=== PATIENT | male | born 1950 | race Caucasian/White ===

== ENCOUNTER → 2016-12-02 | Outpatient (CLI) | payer OTHER ==
--- NOTE | 2016-12-02 16:04 | US ---
Scrotal Ultrasound History: Palpable left scrotal lump for approximately 1-1/2 weeks. History of left orchiopexy. Comparison: None available. Findings: Right: The right testicle has homogeneous echotexture, with no discrete masses, measuring 2.5 x 3.3 x 4.7 cm. Normal arterial blood flow is present in the testicle. The right epididymis has normal ec hotexture. There is a small hydrocele, with no varicocele. Left: The left testicle has homogeneous echotexture, with no discrete masses, measuring 3.6 x 2.5 x 4.5 cm. Normal arterial blood flow is present in the testicle. There is a septated 2.4 x 2.3 x 2.8 cm left epididymal head cyst. There is minimal nodularity at the margins of the cyst. No vasculariz ed soft tissue elements are visible on Doppler. There is no hydrocele or varicocele. Blood flow is symmetric, with no evidence of hyperemia. Impression: 1. Complex 2.8 cm left epididymal cyst, measuring 2.8 cm. Cystic extratesticular lesions are most l ikely benign, however, consider Urology consultation or ultrasound follow up. 2. Small right hydrocele.
== END ==
LOC: FIMAGING 11:30
PROVIDERS: ATTEND Family Medicine
DX: N50.3 Cyst of epididymis (principal); N43.3 Hydrocele, unspecified

== ENCOUNTER 2017-03-09 11:48 | Emergency (ER) | payer OTHER ==
[2017-03-09 11:52] VITALS: BP 155/92; PULSE 67; RESP 16; TEMP 98.2; O2SAT 91
--- NOTE | 2017-03-09 12:33 | EDPHY ---
H & P Time Seen by Provider: 03/09/17 12:20 HPI/ROS: HPI: 66 year old male presents to emergency department with chief concern left hand laceration. Occurred 30 minutes prior to arrival when he was playing with his dog in the grass, and hit his hand on a piece of glass. It was a small intact piece of glass that he removed. Area bled profusely, he rinsed with water, and presents for evaluation. Up-to-date with tetanus. Denies weakness, numbness, tingling, or decreased range of motion of the hand. He is not on any home medications. Immunocompetent. Right-hand dominant. ROS:10 point review of systems is negative other than as stated in HPI Smoking Status: Former smoker Physical Exam: Vital signs stable, reviewed by me General: Awake, alert, calm, cooperative. No acute distress. Head: Normalocephalic. Atraumatic. EENT: PERRLA. EOMI. CV: Radial pulses 2+ bilaterally. Brisk cap refill all extremities. Neuro: Alert. Oriented x 3. Speech clear. Sensation intact all extremities. Skin: Skin warm, dry. There is a 1.5 cm laceration located dorsum of the left hand, mid 1st metacarpal. Musculoskeletal: Full range of motion left hand. Opposition intact. Strength 5 + all digits left hand. Constitutional: Initial Vital Signs Temperature (C) 36.8 C 03/09/17 11:49 Heart Rate 67 03/09/17 11:49 Respiratory Rate 16 03/09/17 11:49 Blood Pressure 155/92 H 03/09/17 11:49 O2 Sat (%) 91 L 03/09/17 11:49 O2 Delivery Mode Room Air Allergies/Adverse Reactions: No Known Allergies Allergy (Unverified 03/09/17 11:52) Home Medications: Medication Instructions Recorded NO HOME MEDS 10/02/10 Medical Decision Making Procedures: After verbal consent was obtained and risks and benefits explained, the laceration was anesthetized using a total of 3 mL of 0.5% Marcaine. Lac then irrigated per protocol by technical project manager. Under sterile procedure, the wound was explored to its base with a gloved finger and no foreign body was identified. No deep structure identified. Wound was then draped and sterile procedure followed during laceration repair. Wound was repaired using # 2, 5-0 Prolene sutures. After repair, laceration cleansed, bacitracin and sterile dressing applied. Procedure performed by myself. Procedure was simple. Pt tolerated the procedure well. ED Course/Re-evaluation: 66-year-old male presents to ED with laceration of the left hand. Has had tetanus within the last 10 years. I suggested a x-ray to rule out glass foreign body and patient refused. Differential Diagnosis: Laceration, retained foreign body, ligament or tendon injury Departure - Departure Disposition: Home, Routine, Self-Care Clinical Impression: Hand laceration Qualifiers: Encounter type: initial encounter Foreign body presence: unspecified Laterality : left Qualified Code(s): S61.412A - Laceration without foreign body of left hand, initial encounter Condition: Good Instructions: Laceration (ED) Additional Instructions: Plan: We saw you here today at the ED with a laceration of your left hand. We closed the wound with 2 sutures. We'll have you leave the dressing on for 24 hours then remove it and begin cleaning the area daily by letting warm, soapy water run over it, but do not scrub or rub the site. Remove dried blood with a Q-tip dipped in water. Apply a thin layer of antibiotic ointment. Continue this routine daily. Recheck urgently if the area develops redness, swelling, increased pain, or red streaking above the wound, or if you develop a fever. Return to the emergency department in 10 days for suture removal. Return prior to then if any issues or concerns. Referrals: Jeannette Schroeder MD [Primary Care Provider] - As per Instructions
== END 2017-03-09 13:22 | disposition home or self-care (01) ==
PROC: 0HQGXZZ Repair Left Hand Skin, External Approach (ICD-10-PCS; principal; 2017-03-09)
DX: S61.412A Laceration without foreign body of left hand, initial encounter (principal); Z87.891 Personal history of nicotine dependence; W25.XXXA Contact with sharp glass, initial encounter

== ENCOUNTER → 2017-04-28 | Outpatient (CLI) | payer OTHER | LOC: FCPNEURO 20:00 | PROVIDERS: ATTEND Psychiatry & Neurology Sleep Medicine | DX: G47.33 Obstructive sleep apnea (adult) (pediatric) (principal); G47.31 Primary central sleep apnea ==

== ENCOUNTER 2017-05-17 08:50 | Emergency (ER) | payer OTHER ==
[2017-05-17 08:55] VITALS: BP 148/86; PULSE 60; RESP 16; TEMP 97.9; O2SAT 97
--- NOTE | 2017-05-17 09:03 | EDPHY ---
H & P Smoking Status: Former smoker Time Seen by Provider: 05/17/17 08:56 HPI/ROS: CHIEF COMPLAINT: right foot and ankle pain x3 days HISTORY OF PRESENT ILLNESS: 66-year-old male states that 3 days ago he was hiking, rolled his foot and felt something pop in location was lateral ankle and 5th metatarsal region. He has been able to bear weight albeit with pain. He has noted soft tissue swelling. No discoloration. No paresthesia. No fall from height. No knee or fibular head pain. PRIMARY CARE PROVIDER: Dr. Jeannette Schroeder REVIEW OF SYSTEMS: A ten point review of systems was performed and is negative with the exception of the items mentioned in the HPI PHYSICAL EXAM (Prior to examination, patient consented to physical exam, hands were washed and my usual and customary physical exam procedures followed) 1) GENERAL: Well-developed, well-nourished, alert and oriented. Appears to be in no acute distress. 2) HEAD: Normocephalic 3) HEENT: Skull are anicteric 4) LUNGS: Breathing comfortably. 5) MUSCULOSKELETAL: Soft tissue swelling present to the lateral malleolus with associated tenderness. Soft tissue swelling present to the 5th metatarsal with associated tenderness. Intact skin. proximal tibia and fibula nontender . negative Parker test, compartments soft 6) SKIN: Intact no discoloration 7) VASCULAR: DP,PT pulses and cap refill present and brisk DIFFERENTIAL DIAGNOSIS: in no particular order including but not limited to fracture, sprain, compartment syndrome Procedure: Splint A [place] boot splint was applied by ER non morse intercept technician. After application of the splint I returned and re-examined the patient. The splint was adequately immobilizing the joint and distal to the splint the patient's circulation and sensation were intact. Patient shows no signs of compartment syndrome. Was given orthopedic precautions. (Debby Bolton) Constitutional: Initial Vital Signs Temperature (C) 36.6 C 05/17/17 08:52 Heart Rate 60 05/17/17 08:52 Respiratory Rate 16 05/17/17 08:52 Blood Pressure 148/86 H 05/17/17 08:52 O2 Sat (%) 97 05/17/17 08:52 O2 Delivery Mode Room Air Allergies/Adverse Reactions: No Known Allergies Allergy (Verified 05/17/17 08:51) Home Medications: Medication Instructions Recorded NO HOME MEDS 10/02/10 MDM/Departure - MDM Imaging Results: Images reviewed by myself (Debby Bolton) ED Course/Re-evaluation: This patient was evaluated and managed by the PA. I agree with the plan of care. I am the secondary supervising physician. (Soledad Heaton) - Depart Disposition: Home, Routine, Self-Care Clinical Impression: Closed fracture of right distal fibula Condition: Good Instructions: Ankle Fracture (ED) Additional Instructions: Return to the ER immediately if you experience discoloration, have worsening pain, numbness, tingling, or any other symptoms that concern you. If you received x-rays in the emergency department today, be advised, that ligamentous , tendon, muscular, and other non-bony injury cannot be fully ruled out. Try to keep your affected extremity elevated above the level of your chest, and keep cold packs on the affected area, for the next 48 hours. Referrals: Gonzales Negro MD [Medical Doctor] - 2-3 days without fail
== END 2017-05-17 10:00 | disposition home or self-care (01) ==
DX: S82.831A Other fracture of upper and lower end of right fibula, initial encounter for closed fracture (principal); Z87.891 Personal history of nicotine dependence; X58.XXXA Exposure to other specified factors, initial encounter; Y93.01 Activity, walking, marching and hiking
CPT/HCPCS: 73610; 73630; 99283; L4386

== ENCOUNTER → 2017-10-21 | Outpatient (CLI) | payer OTHER ==
--- NOTE | 2017-10-29 13:22 | CPEEG ---
[f rep st] ELECTROENCEPHALOGRAM DATE OF STUDY: 10/21/2017 DATE OF INTERPRETATION: 10/29/2017. INTERPRETATION: This EEG is abnormal due to the presence of generalized atypical spike and wave disc harges. 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 The patient did not have any clinical events during the recording. These findings have been transmitted to the referrin g physician for this procedure, Dr. Mahesh Soni. REPORT: This EEG contains 10-11 Hz alpha activity to the posterior head regions. The primary featur e of this recording was the presence of generalized atypical spike and wave discharges occurring at r est. There was increased of generalized atypical spike and wave discharges during drowsiness and sle ep. The patient did not have any clinical events or electrographic discharges during the recording. There was no additional activation with photic stimulation or hyperventilation. The findings of thi s EEG were transmitted to Dr. Mahesh Soni, the referring physician. /[id number]/MODL
== END ==
LOC: FCPNEURO 14:28
PROVIDERS: ATTEND Psychiatry & Neurology Neurology
DX: R56.9 Unspecified convulsions (principal)

== ENCOUNTER → 2017-11-25 | Outpatient (CLI) | payer OTHER ==
[~2017-11-25] MED LIST: GADOBUTROL 10 ML VIAL IVP ONE
== END ==
LOC: FIMAGING 15:33
PROVIDERS: ATTEND Otolaryngology Facial Plastic Surgery
DX: R93.0 Abnormal findings on diagnostic imaging of skull and head, not elsewhere classified (principal); H90.5 Unspecified sensorineural hearing loss
CPT/HCPCS: 70553; A9585

== ENCOUNTER → 2018-11-29 | Outpatient (CLI) | payer OTHER | LOC: FIMAGING 09:51 | PROVIDERS: ATTEND Family Medicine Sports Medicine | DX: M50.31 Other cervical disc degeneration, high cervical region (principal) ==

== ENCOUNTER 2019-01-19 00:35 | Emergency (ER) | payer OTHER ==
--- NOTE | 2019-01-19 00:43 | EDPHY ---
H & P Stated Complaint: Nausea x 1 day Time Seen by Provider: 01/19/19 00:43 HPI/ROS: HPI CHIEF COMPLAINT: Nausea vomiting. "I ate a bad egg" HISTORY OF PRESENT ILLNESS: This is a 68-year-old male, he has a history of Meniere's disease, otherwise healthy, presents emergency room stating he has had nausea vomiting throughout the day. He states that he woke up this morning and felt rather fine, he went and ate an egg and Sausage for breakfast at a restaurant, this around 8:00 a.m. Around 10:00 a.m. He got to work felt nauseous vomited multiple times. Vomiting continue approximately 5-6 times at home. No blood. States had multiple bowel movements and but no mesfin diarrhea. He states he had 10 and soft bowel movements. He still feels nauseous. Denies any chest pain, denies shortness of breath, denies abdominal pain. His main complaint is nausea. No dizziness no headache. No fever. Did have chills.. He did not get his flu shot this year. Past Medical History: Denies significant medical history except for Meniere's disease Past Surgical History: No recent surgery Social History: Denies daily use of drugs alcohol tobacco. Family History: Noncontributory ROS REVIEW OF SYSTEMS: 10 Systems were reviewed and negative with the exception of the elements mentioned in the history of present illness. Exam Constitutional appears well nontoxic no acute distress triage nursing summary reviewed, vital signs reviewed, awake/alert. Eyes normal conjunctivae and sclera, EOMI, PERRLA. HENT normal inspection, atraumatic, moist mucus membranes, no epistaxis, neck supple/ no meningismus, no raccoon eyes. Respiratory clear to auscultation bilaterally, normal breath sounds, no respiratory distress, no wheezing. Cardiovascular rate normal, regular rhythm, no murmur, no edema, distal pulses normal. Gastrointestinal soft, non-tender, no rebound, no guarding, normal bowel sounds, no distension, no pulsatile mass. Genitourinary no CVA tenderness. Musculoskeletal no midline vertebral tenderness, full range of motion, no calf swelling, no tenderness of extremities, no meningismus, good pulses, neurovascularly intact. Skin pink, warm, & dry, no rash, skin atraumatic. Neurologic awake, alert and oriented x 3, AAOx3, moves all 4 extremities equally, motor intact, sensory intact, CN II-XII intact, normal cerebellar, normal vision, normal speech. Psychiatric normal mood/affect. Heme/Lymph/Immune no lymphadenopathy. Differential Diagnosis: Differential diagnosis includes but is not limited to and in no particular order: Bowel obstruction, appendicitis, gallbladder disease, diverticulitis, colitis, enteritis, perforated viscus, gastritis, GERD , esophagitis, urinary tract infection, pyelonephritis, kidney stones Medical Decision Making: Plan for this patient IV establishment IV fluid bolus , IV Zofran 4 mg for nausea, basic labs, EKG, troponin, chest x-ray, influenza and re-evaluate. Re-evaluation: EKG interpretation by me on record in IDx system. Impression time of EKG 0056, sinus rhythm rate of 67, no signs of acute ischemia no appreciate ST elevation or significant ST depression. Chest x-ray negative for acute cardiopulmonary disease. Image interpreted by myself. 0503: Patient re-evaluate he is resting comfortably has not had any vomiting here. Requesting discharge. Plan for repeat troponin repeat EKG is not had any chest pain or shortness of breath. P.o. Challenge well. 5:06 a.m. patient is eager for discharge requesting be discharged he states he has to get to his work job site today. Denies any chest pain or shortness of breath. He ambulated well throughout the emergency without difficulty also PO challenge well without any vomiting. He states he feels much better after 2 L of fluid and Zofran. He is requesting Zofran for home. His troponin was negative. Chest x-ray did not show anything acute Is abdomen is soft nontender. It is possibly a food-borne related illness for causing vomiting I do recommend that he develops worsening abdominal pain, fever, vomiting he needs to return to the emergency Room. He is comfortable this plan. I do recommend bland diet EKG interpretation by me on record in IDx system. Impression time of EKG 5:10 a.m. This is a repeat EKG, sinus rhythm rate of 68, this EKG was performed due to nausea vomiting. He did not have any chest pain or shortness of breath. This EKG is unremarkable for acute ischemia. 2nd troponin 0.00 Patient drinking without difficulty and eager for discharge. We discussed return precautions return emergency room if develops worsening symptoms. Source: Patient - Personal History Current Tetanus Diphtheria and Acellular Pertussis (TDAP): Unsure Tetanus Vaccine Date: < 10 YEARS - Medical/Surgical History Hx Asthma: No Hx Chronic Respiratory Disease: No Hx Diabetes: No Hx Cardiac Disease: No Hx Renal Disease: No Hx Cirrhosis: No Hx Alcoholism: No Hx HIV/AIDS: No Hx Splenectomy or Spleen Trauma: No Other PMH: Meniere's disease - Social History Smoking Status: Former smoker Constitutional: Initial Vital Signs Temperature (C) 37.6 C 01/19/19 00:39 Heart Rate 76 01/19/19 00:39 Respiratory Rate 16 01/19/19 00:39 Blood Pressure 153/81 H 01/19/19 00:39 O2 Sat (%) 97 01/19/19 00:39 O2 Delivery Mode Room Air O2 (L/minute) 2 Allergies/Adverse Reactions: No Known Allergies Allergy (Verified 05/17/17 08:51) Home Medications: Medication Instructions Recorded NO HOME MEDS 10/02/10 Ondansetron HCl [Zofran] 4 mg PO Q4-6PRN PRN #10 tablet 01/19/19 Medical Decision Making - Data Points Laboratory Results: Laboratory Results 01/19/19 00:49 01/19/19 00:49 01/19/19 01/19/19 01/19/19 05:09 01:00 00:54 WBC RBC Hgb Hct MCV MCH MCHC RDW Plt Count MPV Neut % (Auto) Lymph % (Auto) [place] % (Auto) Eos % (Auto) Baso % (Auto) Nucleat RBC Rel Count Absolute Neuts (auto) Absolute Lymphs (auto) Absolute Monos (auto) Absolute Eos (auto) Absolute Basos (auto) Absolute Nucleated RBC Immature Gran % Immature Gran # RBC/WBC/PLT Morphology Platelet Estimate Sodium Potassium Chloride Carbon Dioxide Anion Gap BUN Creatinine Estimated GFR Glucose Calcium Magnesium Total Bilirubin Conjugated Bilirubin Unconjugated Bilirubin AST ALT Alkaline Phosphatase POC Troponin I Pending 0.00 ng/mL ng/mL (0.00-0.08) NT-Pro-B Natriuret Pep Total Protein Albumin Lipase Nasal Influenza A PCR NEGATIVE FOR FLU A (NEGATIVE) Nasal Influenza B PCR NEGATIVE FOR FLU B (NEGATIVE) 01/19/19 01/19/19 00:49 00:49 WBC 8.84 10^3/uL 10^3/uL (3.80-9.50) RBC 5.31 10^6/uL 10^6/uL (4.40-6.38) Hgb 15.5 g/dL g/dL (13.7-17.5) Hct 44.4 % % (40.0-51.0) MCV 83.6 fL fL (81.5-99.8) MCH 29.2 pg pg (27.9-34.1) MCHC 34.9 g/dL g/dL (32.4-36.7) RDW 13.0 % % (11.5-15.2) Plt Count 298 10^3/uL 10^3/uL (150-400) MPV 10.9 fL fL (8.7-11.7) Neut % (Auto) 85.8 % H % (39.3-74.2) Lymph % (Auto) 4.8 % L % (15.0-45.0) [place] % (Auto) 6.8 % % (4.5-13.0) Eos % (Auto) 2.0 % % (0.6-7.6) Baso % (Auto) 0.3 % % (0.3-1.7) Nucleat RBC Rel Count 0.0 % % (0.0-0.2) Absolute Neuts (auto) 7.58 10^3/uL H 10^3/uL (1.70-6.50) Absolute Lymphs (auto) 0.42 10^3/uL L 10^3/uL (1.00-3.00) Absolute Monos (auto) 0.60 10^3/uL 10^3/uL (0.30-0.80) Absolute Eos (auto) 0.18 10^3/uL 10^3/uL (0.03-0.40) Absolute Basos (auto) 0.03 10^3/uL 10^3/uL (0.02-0.10) Absolute Nucleated RBC 0.00 10^3/uL 10^3/uL (0-0.01) Immature Gran % 0.3 % % (0.0-1.1) Immature Gran # 0.03 10^3/uL 10^3/uL (0.00-0.10) RBC/WBC/PLT Morphology TNP Platelet Estimate TNP Sodium 138 mEq/L mEq/L (135-145) Potassium 4.3 mEq/L mEq/L (3.5-5.2) Chloride 105 mEq/L mEq/L (97-110) Carbon Dioxide 20 mEq/l L mEq/l (22-31) Anion Gap 13 mEq/L mEq/L (6-14) BUN 19 mg/dL mg/dL (7-23) Creatinine 0.9 mg/dL mg/dL (0.7-1.3) Estimated GFR > 60 Glucose 113 mg/dL H mg/dL (70-100) Calcium 9.3 mg/dL mg/dL (8.5-10.4) Magnesium 1.8 mg/dL mg/dL (1.6-2.3) Total Bilirubin 1.3 mg/dL mg/dL (0.1-1.4) Conjugated Bilirubin 0.4 mg/dL mg/dL (0.0-0.5) Unconjugated Bilirubin 0.9 mg/dL mg/dL (0.0-1.1) AST 37 IU/L IU/L (17-59) ALT 31 IU/L IU/L (21-72) Alkaline Phosphatase 87 IU/L IU/L (38-126) POC Troponin I NT-Pro-B Natriuret Pep 152 pg/mL H pg/mL (0-125) Total Protein 7.3 g/dL g/dL (6.3-8.2) Albumin 4.5 g/dL g/dL (3.5-5.0) Lipase 149 IU/L IU/L (23-300) Nasal Influenza A PCR Nasal Influenza B PCR Medications Given: Discontinued Medications Famotidine (Pepcid) 20 mg IVP EDNOW ONE Stop: 01/19/19 00:51 Last Admin: 01/19/19 02:27 Dose: Not Given Sodium Chloride (Ns) 1,000 mls @ 0 mls/hr IV EDNOW ONE; Wide Open PRN Reason: Protocol Stop: 01/19/19 00:50 Last Admin: 01/19/19 02:28 Dose: Not Given Sodium Chloride (Ns) 1,000 mls @ 0 mls/hr IV EDNOW ONE; Wide Open PRN Reason: Protocol Stop: 01/19/19 02:09 Last Admin: 01/19/19 02:27 Dose: Not Given Ondansetron HCl (Zofran) 4 mg IVP EDNOW ONE Stop: 01/19/19 00:51 Last Admin: 01/19/19 02:28 Dose: Not Given Point of Care Test Results: Chemistry 01/19/19 00:54 POC Troponin I 0.00 ng/mL ng/mL (0.00-0.08) Departure - Departure Disposition: Home, Routine, Self-Care Clinical Impression: Nausea and vomiting Condition: Good Instructions: Ondansetron (By mouth), Acute Nausea and Vomiting (ED) Additional Instructions: 1. [place] diet over the next 24 to 48 hours, no spicy, fatty or greasy food. 2. Return to the Emergency Room if you have worsening symptoms, this includes, vomiting, fever, abdominal pain or not doing well. 3. Advance your diet slowly. Referrals: Samuel Bryan MD [Primary Care Provider] - As per Instructions Prescriptions: Ondansetron HCl [Zofran] 4 mg PO Q4-6PRN PRN #10 tablet PRN Reason: Nausea/Vomiting, Use 1st
[2019-01-19] MEDS: NS 1,000 ML IV ONE ×2 (00:53→02:28)
[2019-01-19] MEDS: FAMOTIDINE 20 MG/2 ML SDV IVP ONE ×2 (00:53→02:27)
[2019-01-19] MEDS: ONDANSETRON 4 MG/2 ML VIAL IVP ONE ×2 (00:53→02:28)
[2019-01-19 01:10] LABS: PLATELET COUNT 298 10^3/uL (150-400)
[2019-01-19] MEDS ORDERED: NS 1,000 ML IV ONE (02:08)
[2019-01-19] MEDS ORDERED: ONDANSETRON 4 MG/2 ML VIAL ONE (02:26)
[2019-01-19 05:14] VITALS: BP 134/87
[2019-01-19] MEDS ORDERED: ONDANSETRON 4MG PREPACK#2 BTL TAKEHOME ONE (05:21)
--- NOTE | 2019-01-26 08:04 | CPEKG ---
Test Reason : OPEN Blood Pressure : / mmHG Vent. Rate : 068 BPM Atrial Rate : 067 BPM P-R Int : 188 ms QRS Dur : 097 ms QT Int : 401 ms P-R-T Axes : 060 -01 021 degrees QTc Int : 427 ms Sinus rhythm Abnormal R-wave progression, early transition Confirmed by Arthur Walls ([id number]) on 01/26/2019 8:03:57 AM Referred By: Arthur Walls Confirmed By:Arthur Walls
--- NOTE | 2019-01-26 08:05 | CPEKG ---
Test Reason : OPEN Blood Pressure : / mmHG Vent. Rate : 067 BPM Atrial Rate : 067 BPM P-R Int : 184 ms QRS Dur : 095 ms QT Int : 394 ms P-R-T Axes : 053 022 020 degrees QTc Int : 416 ms Sinus rhythm Abnormal R-wave progression, early transition Confirmed by Arthur Walls ([id number]) on 01/26/2019 8:03:58 AM Referred By: Arthur Walls Confirmed By:Arthur Walls
== END 2019-01-19 05:27 | disposition home or self-care (01) ==
DX: R11.2 Nausea with vomiting, unspecified (principal)
CPT/HCPCS: 71045; 93005; 99285; J2405; 84484-ER